=== PATIENT | female | born 1970 | race Caucasian/White ===

== ENCOUNTER 2016-07-07 08:23 | Emergency (ER) | payer MEDICAID ==
[2016-07-07] MEDS ORDERED: NS 1,000 ML IV ONE (08:29)
[2016-07-07] MEDS ORDERED: METOCLOPRAMIDE 10 MG/2 ML VIAL IVP ONE (08:29)
[2016-07-07] MEDS ORDERED: KETOROLAC 30 MG/1 ML SDV IVP ONE (08:29)
[2016-07-07] MEDS ORDERED: DEXAMETHASONE 10 MG/ML VIAL IVP ONE (08:29)
--- NOTE | 2016-07-07 08:29 | EDPHY ---
H & P HPI/ROS: HPI CHIEF COMPLAINT: Headache, nausea, vomiting HISTORY OF PRESENT ILLNESS: This patient very pleasant 45-year-old female significant past medical history for ovarian cyst, and hysterectomy, also has a history of headaches. She [facility] after she has been developing a worsening headache today. She tells me this headache started an hour and half ago it has been gradual in onset not sudden onset. She had associated nausea vomiting with it. She states for the past 8 months she has had a sharp stabbing pain left temporal region without any loss of vision or double vision. She tells me this has been persistent for the past 8 months on and off sharp stabbing pain. She did feel this this morning had 4 separate episodes of this sharp stabbing pain left temporal region. No visual disturbance. She then developed a headache in the back of her head across the posterior occiput bilaterally as a pressure sensation. She has associated nausea vomiting with this. She has no neck pain, no fever. She does tell me that she has been recently ill with a upper respiratory tract infection with a cough and sore throat and cold and sinus pressure. She has never had any imaging of her head. She does have a history of headaches but they are different from this. Upon arrival here in the emergency room she appears well nontoxic no acute distress resting comfortably. Past Medical History: Headaches Past Surgical History: multiple abdominal surgeries for ovarian cyst and hysterectomy, left elbow surgery Social History: lives [facility] smokes tobacco, denies drugs alcohol Family History: Noncontributory ROS REVIEW OF SYSTEMS: A comprehensive 10 point review of systems is otherwise negative aside from elements mentioned in the history of present illness. Exam Constitutional appears well nontoxic, triage nursing summary reviewed, vital signs reviewed, awake/alert. Eyes normal conjunctivae and sclera, EOMI, PERRLA. HENT Head: No temporal tenderness on exam, normal inspection, atraumatic, moist mucus membranes, no epistaxis, neck supple/ no meningismus, no raccoon eyes. Respiratory clear to auscultation bilaterally, normal breath sounds, no respiratory distress, no wheezing. Cardiovascular rate normal, regular rhythm, no murmur, no edema, distal pulses normal. Gastrointestinal soft, non-tender, no rebound, no guarding, normal bowel sounds, no distension, no pulsatile mass. Genitourinary no CVA tenderness. Musculoskeletal no midline vertebral tenderness, full range of motion, no calf swelling, no tenderness of extremities, no meningismus, good pulses, neurovascularly intact. Skin pink, warm, & dry, no rash, skin atraumatic. Neurologic awake, alert and oriented x 3, AAOx3, moves all 4 extremities equally, motor intact, sensory intact, CN II-XII intact, normal cerebellar, normal vision, normal speech. Psychiatric normal mood/affect. Heme/Lymph/Immune no lymphadenopathy. Differential Diagnosis: includes but is not limited to in a particular order, migraine headache, tension headache, cluster headache, temporal arteritis, vasculitis Medical Decision Making: plan for this patient patient had a CT scan head without contrast due to atypical headache for this patient, will check blood work including ESR. It is noted she is not tender over the temporal region. 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 The study was read by Dr. Andrade. I viewed the images myself on the PACS system. 1103: Time of re-evaluation: The patient is resting comfortably here: She does tell me her headache is greatly improved however she still is complaining of a posterior occiput headache. Much improved. Her neurological exam is unremarkable her CT scan does show this Cyst she was unaware of any cyst previously. Due to ongoing headache and cyst will perform MRI to further characterize this. It is noted however she appears well nontoxic no acute distress normal neurological exam. Blood work is reviewed is unremarkable. ESR normal. No temporal pain. No tenderness on palpation. Temporal arteritis is unlikely. MRI of the brain without contrast The results of the study are negative for acute abnormality specifically no mass, bleed, space-occupying lesion. I discussed the results of this study with the radiologist Dr. Andrade 1308: re-evaluation at this time patient is feeling much better repeat neurological exam is unremarkable she has no focal neuro deficit. I did go over her CT report, MRI. I will place her on azithromycin for sinusitis if your sit for headache. She does understand strict return precautions understands return emergency room she develops worsening symptoms includes worsening headache, fever, vomiting. She understands stay well-hydrated. Dim environment today. Return if worse. Source: Patient, EMS Constitutional: Initial Vital Signs Temperature (C) 36.7 C 07/07/16 08:35 Heart Rate 61 07/07/16 08:35 Respiratory Rate 16 07/07/16 08:35 Blood Pressure 124/84 H 07/07/16 08:35 O2 Sat (%) 94 07/07/16 08:35 O2 Delivery Mode Room Air Allergies/Adverse Reactions: Sulfa (Sulfonamide Antibiotics) Allergy (Verified 07/07/16 08:40) Home Medications: Medication Instructions Recorded AZITHROMYCIN [Z-PACK] 250 mg PO DAILY #6 tab 07/07/16 Acet/Caffeine/Buta Fioricet 1 each PO Q6 #10 tab 07/07/16 [Fioricet (*)] Medical Decision Making - Data Points Laboratory Results: Laboratory Results 07/07/16 08:25 07/07/16 08:25 07/07/16 07/07/16 08:25 08:25 WBC 8.70 10^3/uL 10^3/uL (3.80-9.50) RBC 4.67 10^6/uL 10^6/uL (4.18-5.33) Hgb 14.7 g/dL g/dL (12.6-16.3) Hct 46.2 % % (38.0-47.0) MCV 98.9 fL fL (81.5-99.8) MCH 31.5 pg pg (27.9-34.1) MCHC 31.8 g/dL L g/dL (32.4-36.7) RDW 12.5 % % (11.5-15.2) Plt Count 251 10^3/uL 10^3/uL (150-400) MPV 10.1 fL fL (8.7-11.7) Neut % (Auto) 55.2 % % (39.3-74.2) Lymph % (Auto) 37.6 % % (15.0-45.0) [place] % (Auto) 4.5 % % (4.5-13.0) Eos % (Auto) 2.0 % % (0.6-7.6) Baso % (Auto) 0.5 % % (0.3-1.7) Nucleat RBC Rel Count 0.0 % % (0.0-0.2) Absolute Neuts (auto) 4.81 10^3/uL 10^3/uL (1.70-6.50) Absolute Lymphs (auto) 3.27 10^3/uL H 10^3/uL (1.00-3.00) Absolute Monos (auto) 0.39 10^3/uL 10^3/uL (0.30-0.80) Absolute Eos (auto) 0.17 10^3/uL 10^3/uL (0.03-0.40) Absolute Basos (auto) 0.04 10^3/uL 10^3/uL (0.02-0.10) Absolute Nucleated RBC 0.00 10^3/uL 10^3/uL (0-0.01) Immature Gran % 0.2 % % (0.0-1.1) Immature Gran # 0.02 10^3/uL 10^3/uL (0.00-0.10) ESR 8 MM/HR MM/HR (0-20) Sodium 143 mEq/L mEq/L (134-144) Potassium 4.0 mEq/L mEq/L (3.5-5.2) Chloride 110 mEq/L mEq/L (97-110) Carbon Dioxide 20 mEq/l L mEq/l (22-31) Anion Gap 13 mEq/L mEq/L (8-16) BUN 21 mg/dL mg/dL (7-23) Creatinine 0.6 mg/dL mg/dL (0.6-1.0) Estimated GFR > 60 Glucose 105 mg/dL H mg/dL (70-100) Calcium 10.0 mg/dL mg/dL (8.5-10.4) C-Reactive Protein 7.4 mg/L mg/L (<10.0) Medications Given: Discontinued Medications Dexamethasone (Decadron Injection) 10 mg IVP EDNOW ONE Stop: 07/07/16 08:30 Last Admin: 07/07/16 08:53 Dose: 10 mg Diphenhydramine HCl (Benadryl Injection) 25 mg IVP EDNOW ONE Stop: 07/07/16 08:30 Last Admin: 07/07/16 08:54 Dose: 25 mg Hydromorphone HCl (Dilaudid) 0.5 mg IVP EDNOW ONE Stop: 07/07/16 11:03 Last Admin: 07/07/16 11:25 Dose: 0.5 mg Sodium Chloride (Ns) 1,000 mls @ 0 mls/hr IV ONCE ONE PRN Reason: Wide Open Stop: 07/07/16 08:30 Last Admin: 07/07/16 08:54 Dose: 1,000 mls Ketorolac Tromethamine (Toradol) 30 mg IVP EDNOW ONE Stop: 07/07/16 08:30 Last Admin: 07/07/16 08:54 Dose: 30 mg Metoclopramide HCl (Reglan Injection) 10 mg IVP EDNOW ONE Stop: 07/07/16 08:30 Last Admin: 07/07/16 08:54 Dose: 10 mg Oxycodone/Acetaminophen (Percocet 5/325) 2 tab PO EDNOW ONE Stop: 07/07/16 12:24 Last Admin: 07/07/16 12:26 Dose: 2 tab Departure - Departure Disposition: Home, Routine, Self-Care Clinical Impression: Headache Qualifiers: Headache type: unspecified Headache chronicity pattern: acute headache Intractability: not intractable Qualified Code(s): R51 - Headache Sinusitis Qualifiers: Sinusitis location: ethmoidal Chronicity: acute Recurrence: non-recurrent Qualified Code(s): J01.20 - Acute ethmoidal sinusitis, unspecified Condition: Good Instructions: Acute Headache (ED) Additional Instructions: 1. please stay well-hydrated drink lots of fluids 2.Return emergency room if you have worsening symptoms includes worsening headache, vomiting or fever. 3.Please do follow up with Neurology about your headaches. 4.I went over her MRI and CT report with you. 5. I will place her on antibiotic for sinus congestion and a CT scan that shows sinusitis. Referrals: Patient,NotPresent [Unknown] - As per Instructions Prescriptions: Acet/Caffeine/Buta Fioricet [Fioricet (*)] 1 each PO Q6 #10 tab AZITHROMYCIN [Z-PACK] 250 mg PO DAILY #6 tab
[2016-07-07 08:37] LABS: % IMMATURE GRANULYOCYTES 0.2 % (0.0-1.1); ABSOLUTE IMMATURE GRANULOCYTES 0.02 10^3/uL (0.00-0.10); ADD DIFF? NO; ADD MORPH? NO; ADD SCAN? NO; ATYPICAL LYMPHOCYTE FLAG 50 (0-99); FRAGMENT RBC FLAG 0 (0-99); HEMATOCRIT 46.2 % (38.0-47.0); HEMOGLOBIN 14.7 g/dL (12.6-16.3); LEFT SHIFT FLG 0 (0-99); LIPEMIA HEMOLYSIS FLAG 80 (0-99); MEAN CELL HEMOGLOBIN 31.5 pg (27.9-34.1); MEAN CELL HEMOGLOBIN CONCENTR. 31.8 g/dL (32.4-36.7); MEAN CELL VOLUME 98.9 fL (81.5-99.8); MEAN PLATELET VOLUME 10.1 fL (8.7-11.7); PLATELET CLUMPS FLAG 20 (0-99); PLATELET COUNT 251 10^3/uL (150-400); RED BLOOD CELL COUNT 4.67 10^6/uL (4.18-5.33); RED CELL DISTRIBUTION WIDTH 12.5 % (11.5-15.2)
[2016-07-07 08:40] VITALS: RESP 16
[2016-07-07 08:52] LABS: SEDIMENTATION RATE 8 MM/HR (0-20)
[2016-07-07 09:05] LABS: ANION GAP 13 mEq/L (8-16); C-REACTIVE PROTEIN 7.4 mg/L (<10.0); CARBON DIOXIDE 20 mEq/l (22-31); CHLORIDE 110 mEq/L (97-110); CREATININE 0.6 mg/dL (0.6-1.0); GLOMERULAR FILTRATION RATE > 60; GLUCOSE 105 mg/dL (70-100); SODIUM 143 mEq/L (134-144)
[2016-07-07] MEDS ORDERED: HYDROmorphONE/DILAUDID 1 MG/ML SYR IVP ONE (11:02)
[2016-07-07] MEDS ORDERED: OXYCODONE/APAP 5/325 TAB PO ONE (12:23)
[2016-07-07 13:22] VITALS: BP 109/80; PULSE 92; TEMP 98.1; O2SAT 77
== END 2016-07-07 13:21 | disposition home or self-care (01) ==
DX: J01.20 Acute ethmoidal sinusitis, unspecified (principal); Z87.891 Personal history of nicotine dependence
CPT/HCPCS: 96374; J1170; J1200; J1885; J2765

== ENCOUNTER 2016-07-12 06:13 | Emergency (ER) | payer MEDICAID ==
[2016-07-12] MEDS ORDERED: NS 1,000 ML IV ONE ×2 (06:17→07:20)
[2016-07-12] MEDS ORDERED: KETOROLAC 30 MG/1 ML SDV IVP ONE (06:17)
--- NOTE | 2016-07-12 06:22 | EDPHY ---
H & P Source: Patient, EMS Exam Limitations: No limitations - Medical/Surgical History Hx Asthma: No Hx Chronic Respiratory Disease: No Hx Diabetes: No Hx Cardiac Disease: No Hx Renal Disease: No Hx Cirrhosis: No Hx Alcoholism: No Hx HIV/AIDS: No Hx Splenectomy or Spleen Trauma: No - Social History Smoking Status: Current every day smoker Time Seen by Provider: 07/12/16 06:17 HPI/ROS: HPI The patient presents with right-sided upper abdominal pain which has been present since 11:00 a.m. yesterday. She is brought in by paramedics. It started slowly and has gotten progressively worse. She awoke at 3:00 a.m. this morning with continued pain [facility]. She says the pain is sharp, radiates to her lateral abdomen and back. It is severe, and is not associated with any nausea, vomiting, shortness of breath, dizziness, diaphoresis. She has no prior history of similar pain.. She was seen in the emergency room 2 days ago for headache with nausea and vomiting. She was found to have a cyst in the corpus callosum on CT scan of her brain without contrast. MRI was performed REVIEW OF SYSTEMS Constitutional: No fever, no chills. Eyes: No discharge. ENT: No sore throat. Cardiovascular: No chest pain, no palpitations. Respiratory: No cough, no shortness of breath. Gastrointestinal: No abdominal pain, no vomiting. Genitourinary: No hematuria. Musculoskeletal: No back pain. Skin: No rashes. Neurological: No headache. PMHx: Headaches, history of total abdominal hysterectomy Soc Hx: [facility], smokes cigarettes PHYSICAL General Appearance: Alert, no distress Eyes: Pupils equal and round no pallor or injection ENT, Mouth: Mucous membranes moist Respiratory: There are no retractions, lungs are clear to auscultation Cardiovascular: Regular rate and rhythm Gastrointestinal: Abdomen is soft and with tenderness in the right upper quadrant, no rebound or guarding Neurological: A&O, moves all extremities Skin: Warm and dry, no rashes Musculoskeletal: Neck is supple non tender Extremities: symmetrical, full range of motion Psychiatric: Patient is oriented X 3, there is no agitation (Riguzzi,Hanh) Constitutional: Initial Vital Signs Temperature (C) 36.6 C 07/12/16 06:21 Heart Rate 65 07/12/16 06:21 Respiratory Rate 18 07/12/16 06:21 Blood Pressure 134/85 H 07/12/16 06:21 O2 Sat (%) 100 07/12/16 06:21 O2 Delivery Mode Room Air Allergies/Adverse Reactions: Sulfa (Sulfonamide Antibiotics) Allergy (Verified 07/12/16 06:23) Home Medications: Medication Instructions Recorded AZITHROMYCIN [Z-PACK] 250 mg PO DAILY #6 tab 07/07/16 Acet/Caffeine/Buta Fioricet 1 each PO Q6 #10 tab 07/07/16 [Fioricet (*)] Medical Decision Making - Diagnostics EKG Interpretation: EKG: Complete interpretation has been separately recorded in the [facility] archive. Summary impression: Right bundle-branch block, no old for comparison (Hanh Rushing) Imaging: Chest x-ray two views shows no cardiomegaly, no infiltrate, interpreted by me, radiology interpretation is pending. (Hanh Rushing) Procedures: Bedside limited abdominal Ultrasound- performed and interpreted by me. Indication: Right upper quadrant abdominal pain Findings: No cholelithiasis, no sonographic Mitchell's, no pericholecystic fluid , no gallbladder wall thickening Impression: No evidence of cholecystitis or cholelithiasis (Hanh Rushing) ED Course/Re-evaluation: 7:15 a.m.- The patient was given Toradol and famotidine with continued pain. Labs have returned and revealed elevated lipase. Right upper quadrant ultrasound was performed and shows no evidence of gallstones. The patient says she drinks alcohol only occasionally and had about 2 shots 2 days ago. Upon review of records, the patient was seen at [facility] emergency room in April of 2016 for right-sided lower chest wall pain that sounds quite similar. She had a normal workup at that time. Because of her continued pain, I will order dose of morphine. The case will be signed out to the oncoming provider Dr. Miller with CT scan of her abdomen pending. I have discussed with her ready the diagnosis of pancreatitis and the treatment. (Hanh Rushing) 0700: I assumed care of this patient from Dr. Rushing at shift change. 0817: CT abdomen/pelvis reported to me negative by Dr. Randle, radiology. (Boston Miller) Differential Diagnosis: This is a 45-year-old homeless female with past medical history of total abdominal hysterectomy, recent ER visit for headaches with diagnosis of sinusitis who now presents with right upper quadrant abdominal pain for the last 1 day. She has no associated symptoms with this pain. Differential diagnosis includes biliary colic, cholecystitis, pneumonia, ACS, gastritis. (Hanh Rushing) Other Provider: The patient was signed out to me at 0700. Her CTabd is negative for acute features. On re-evaluation at 9:30, she is eating breakfast without difficulty and does not appear in pain. Her lipase is mildly elevated, however she is not complaining of vomiting nor having any difficulty eating, so I doubt that this represents true acute pancreatitis. The patient was evaluated in this ED two days ago for completely different complaints, and has been seen at other hospitals for same complaint so I think there may be some degree of secondary gain here. I discussed strict return precautions. (Boston Miller) - Data Points Laboratory Results: Laboratory Results 07/12/16 06:20 07/12/16 06:20 07/12/16 07/12/16 06:20 06:20 WBC 9.76 10^3/uL H 10^3/uL (3.80-9.50) RBC 4.36 10^6/uL 10^6/uL (4.18-5.33) Hgb 13.8 g/dL g/dL (12.6-16.3) Hct 42.5 % % (38.0-47.0) MCV 97.5 fL fL (81.5-99.8) MCH 31.7 pg pg (27.9-34.1) MCHC 32.5 g/dL g/dL (32.4-36.7) RDW 12.4 % % (11.5-15.2) Plt Count 224 10^3/uL 10^3/uL (150-400) MPV 10.2 fL fL (8.7-11.7) Neut % (Auto) 45.7 % % (39.3-74.2) Lymph % (Auto) 46.1 % H % (15.0-45.0) [place] % (Auto) 4.9 % % (4.5-13.0) Eos % (Auto) 2.6 % % (0.6-7.6) Baso % (Auto) 0.5 % % (0.3-1.7) Nucleat RBC Rel Count 0.0 % % (0.0-0.2) Absolute Neuts (auto) 4.46 10^3/uL 10^3/uL (1.70-6.50) Absolute Lymphs (auto) 4.50 10^3/uL H 10^3/uL (1.00-3.00) Absolute Monos (auto) 0.48 10^3/uL 10^3/uL (0.30-0.80) Absolute Eos (auto) 0.25 10^3/uL 10^3/uL (0.03-0.40) Absolute Basos (auto) 0.05 10^3/uL 10^3/uL (0.02-0.10) Absolute Nucleated RBC 0.00 10^3/uL 10^3/uL (0-0.01) Immature Gran % 0.2 % % (0.0-1.1) Immature Gran # 0.02 10^3/uL 10^3/uL (0.00-0.10) Sodium 143 mEq/L mEq/L (134-144) Potassium 3.9 mEq/L mEq/L (3.5-5.2) Chloride 109 mEq/L mEq/L (97-110) Carbon Dioxide 21 mEq/l L mEq/l (22-31) Anion Gap 13 mEq/L mEq/L (8-16) BUN 17 mg/dL mg/dL (7-23) Creatinine 0.6 mg/dL mg/dL (0.6-1.0) Estimated GFR > 60 Glucose 109 mg/dL H mg/dL (70-100) Calcium 9.3 mg/dL mg/dL (8.5-10.4) Total Bilirubin 0.5 mg/dL mg/dL (0.1-1.4) Conjugated Bilirubin 0.4 mg/dL mg/dL (0.0-0.5) Unconjugated Bilirubin 0.1 mg/dL mg/dL (0.0-1.1) AST 19 IU/L IU/L (14-46) ALT 24 IU/L IU/L (9-52) Alkaline Phosphatase 90 IU/L IU/L (38-126) Troponin I < 0.012 ng/mL ng/mL (0-0.034) Total Protein 6.3 g/dL g/dL (6.3-8.2) Albumin 3.9 g/dL g/dL (3.5-5.0) Lipase 615.0 IU/L H IU/L (23-300) Medications Given: Discontinued Medications Sodium Chloride (Ns) 1,000 mls @ 0 mls/hr IV ONCE ONE PRN Reason: Wide Open Stop: 07/12/16 06:18 Last Admin: 07/12/16 06:20 Dose: 1,000 mls Famotidine/Sodium Chloride (Pepcid 20 Mg (Premix)) 50 mls @ 200 mls/hr IV EDNOW ONE Stop: 07/12/16 06:37 Last Admin: 07/12/16 06:25 Dose: 50 mls Sodium Chloride (Ns) 1,000 mls @ 0 mls/hr IV ONCE ONE PRN Reason: Wide Open Stop: 07/12/16 07:21 Last Admin: 07/12/16 07:34 Dose: 1,000 mls Ketorolac Tromethamine (Toradol) 15 mg IVP EDNOW ONE Stop: 07/12/16 06:18 Last Admin: 07/12/16 06:19 Dose: 15 mg Morphine Sulfate (Morphine) 4 mg IVP EDNOW ONE Stop: 07/12/16 07:10 Last Admin: 07/12/16 07:34 Dose: 4 mg Departure - Departure Disposition: Home, Routine, Self-Care Clinical Impression: Abdominal pain Condition: Good Instructions: Pancreatitis (ED) Additional Instructions: You should avoid drinking alcohol. You should maintain a clear liquid diet until you're feeling better. Please return to the emergency room if you worsen in any way. Referrals: [facility] [Outside] - As per Instructions
[2016-07-12] MEDS ORDERED: FAMOTIDINE 20 MG/NACL 50 ML IV ONE (06:23)
[2016-07-12 06:25] LABS: % IMMATURE GRANULYOCYTES 0.2 % (0.0-1.1); ABSOLUTE IMMATURE GRANULOCYTES 0.02 10^3/uL (0.00-0.10); ADD DIFF? NO; ADD MORPH? NO; ADD SCAN? NO; ATYPICAL LYMPHOCYTE FLAG 20 (0-99); FRAGMENT RBC FLAG 0 (0-99); HEMATOCRIT 42.5 % (38.0-47.0); HEMOGLOBIN 13.8 g/dL (12.6-16.3); LEFT SHIFT FLG 0 (0-99); LIPEMIA HEMOLYSIS FLAG 80 (0-99); MEAN CELL HEMOGLOBIN 31.7 pg (27.9-34.1); MEAN CELL HEMOGLOBIN CONCENTR. 32.5 g/dL (32.4-36.7); MEAN CELL VOLUME 97.5 fL (81.5-99.8); MEAN PLATELET VOLUME 10.2 fL (8.7-11.7); PLATELET CLUMPS FLAG 0 (0-99); PLATELET COUNT 224 10^3/uL (150-400); RED BLOOD CELL COUNT 4.36 10^6/uL (4.18-5.33); RED CELL DISTRIBUTION WIDTH 12.4 % (11.5-15.2)
--- NOTE | 2016-07-12 06:27 | CPEKG ---
Heart Rate: 57 RR Interval: 1053 P-R Interval: 156 QRSD Interval: 134 QT Interval: 460 QTC Interval: 448 P [place]: 49 QRS [place]: 5 T Wave [place]: 36 EKG Severity - ABNORMAL ECG - EKG Impression: SINUS RHYTHM EKG Impression: RIGHT BUNDLE BRANCH BLOCK Electronically Signed By: Hanh Rushing 12-Jul-2016 07:25:25
[2016-07-12 07:00] LABS: ALANINE AMINOTRANSFERASE 24 IU/L (9-52); ALBUMIN 3.9 g/dL (3.5-5.0); ALKALINE PHOSPHATASE 90 IU/L (38-126); ANION GAP 13 mEq/L (8-16); ASPARTATE AMINOTRANSFERASE 19 IU/L (14-46); BILIRUBIN,TOTAL 0.5 mg/dL (0.1-1.4); BILIRUBIN-CONJUGATED 0.4 mg/dL (0.0-0.5); BILIRUBIN-UNCONJUGATED 0.1 mg/dL (0.0-1.1); CALCIUM 9.3 mg/dL (8.5-10.4); CARBON DIOXIDE 21 mEq/l (22-31); CHLORIDE 109 mEq/L (97-110); CREATININE 0.6 mg/dL (0.6-1.0); GLOMERULAR FILTRATION RATE > 60; GLUCOSE 109 mg/dL (70-100); POTASSIUM 3.9 mEq/L (3.5-5.2); SODIUM 143 mEq/L (134-144); TOTAL PROTEIN 6.3 g/dL (6.3-8.2)
[2016-07-12 07:11] LABS: TROPONIN I < 0.012 ng/mL (0-0.034)
[2016-07-12] MEDS ORDERED: IOPAMIDOL (ISOVUE-300) 100 ML BTL IV ONE (07:29)
[2016-07-12 09:41] VITALS: BP 130/85; PULSE 54; RESP 16; TEMP 97.7; O2SAT 96
== END 2016-07-12 09:40 | disposition home or self-care (01) ==
LOC: EDUNIT#
DX: R10.11 Right upper quadrant pain (principal); F17.200 Nicotine dependence, unspecified, uncomplicated; Z90.710 Acquired absence of both cervix and uterus
CPT/HCPCS: 96374; J1885; Q9967